=== PATIENT | female | born 1970 | race Caucasian/White ===

== ENCOUNTER 2017-02-17 18:23 | Emergency (ER) | payer MEDICAID ==
[2017-02-17 18:41] VITALS: BP 116/69
--- NOTE | 2017-02-17 19:08 | EDM.PDOC ---
<Lenny Pettyin - Last Filed: 02/17/17 21:10> ED HPI GENERAL MEDICAL PROBLEM - General Chief Complaint: Lower Extremity Injury/Pain Stated Complaint: HURT KNEE Time Seen by Provider: 02/17/17 19:30 Source of Information: Reports: Patient History Limitations: Reports: No Limitations - History of Present Illness INITIAL COMMENTS - FREE TEXT/NARRATIVE: Mechanical fall on stairs immediately prior to ED visit. Stated stepped backwards, ? if foot caught or missed step, and fell backwards down 3-4 steps. No ALOC, no c/o back/neck/etc. pain. C/o pain in R knee. Was able to ambulate at the time, and in the ED. Has complicated h/o knee surgery (three scopes ? what done, ACL repair w/ ? bone graft, patella 'resurfacing'). Denies other complaints. No EtOH. Drove self to ED. Onset: Today Duration: Getting Worse Location: Reports: Lower Extremity, Right (knee) Quality: Reports: Ache. Denies: Same as Previous Episode Severity: Moderate Improves with: Reports: None Worsens with: Reports: Movement Associated Symptoms: Reports: No Other Symptoms - Related Data Allergies Allergy/AdvReac Type Severity Reaction Status Date / Time Sulfa (Sulfonamide Allergy Hives Verified 02/17/17 19:12 Antibiotics) Home Meds: Home Meds FLUoxetine HCl [Fluoxetine HCl] 40 mg PO DAILY 03/02/13 [History] Simvastatin [Zocor] 20 mg PO DAILY 03/02/13 [History] Losartan Potassium 25 mg PO DAILY 01/11/14 [History] Aspirin [Low Dose Aspirin EC] 81 mg PO ASDIRECTED PRN 02/25/14 [History] Gabapentin [Gabapentin] 300 mg PO BID 10/27/15 [History] Verapamil HCl [Verapamil ER] 240 mg PO BEDTIME 10/27/15 [History] Clindamycin HCl 300 mg PO Q6H 01/11/16 [History] metFORMIN [Glucophage] 1,000 mg PO BID 01/11/16 [History] oxyCODONE 2 tab PO Q4H PRN 01/11/16 [History] Review of Systems - Review of Systems Review Of Systems: See Below Constitutional: Reports: No Symptoms Eyes: Reports: No Symptoms Ears: Reports: No Symptoms Nose: Reports: No Symptoms Mouth/Throat: Reports: No Symptoms Respiratory: Reports: No Symptoms Cardiovascular: Reports: No Symptoms GI/Abdominal: Reports: No Symptoms Genitourinary: Reports: No Symptoms Musculoskeletal: Reports: Other (R Knee per PMH) Skin: Reports: No Symptoms Neurological: Reports: No Symptoms Psychiatric: Reports: No Symptoms ED EXAM, GENERAL - Physical Exam Exam: See Below Free Text/Narrative:: R knee w/o effusion, full AROM and PROM, TTP over anterior medial joint line, just anterior to MCL, grossly ligamentous intact, but limited exam due to patient comfort. No calf/Achilles pain or defect. Ankle ttp over ant talofibular ligament, no inf/post fibular or tibia pain, no prox 5th metatarsal TTP, no midfoot or calcaneal pain, distal C/M/S intact. Hip AROM, non TTP Exam Limited By: No Limitations General Appearance: Alert Nose: Normal Inspection Head: Atraumatic Neck: Normal Inspection, Supple, Non-Tender, Full Range of Motion. No: Tender Lateral, Tender Midline Respiratory/Chest: No Respiratory Distress, Lungs Clear, Normal Breath Sounds, No Accessory Muscle Use, Chest Non-Tender Cardiovascular: Normal Peripheral Pulses, Regular Rate, Rhythm, No Edema, No Gallop GI/Abdominal: Soft, Non-Tender Back Exam: Normal Inspection, Full Range of Motion. No: CVA Tenderness (R), Muscle Spasm, Paraspinal Tenderness, Vertebral Tenderness Extremities: No Pedal Edema. No: Slow Capillary Refill, Joint Swelling ( swelling over ant talonav lig) Neurological: Alert, Oriented, Normal Cognition Psychiatric: Normal Affect, Normal Mood Skin Exam: Warm, Dry, Intact, Normal Color Course - Vital Signs Last Recorded V/S: Last Vital Signs Temp 37.1 C 02/17/17 18:50 Pulse 77 02/17/17 21:14 Resp 16 02/17/17 18:50 BP 116/69 02/17/17 18:50 Pulse Ox 96 02/17/17 21:14 - Orders/Labs/Meds Meds: Medications Discontinued Medications Generic Name Dose Route Start Last Admin Trade Name Freq PRN Reason Stop Dose Admin Oxycodone/Acetaminophen 2 tab 02/17/17 20:12 02/17/17 20:21 Percocet 325-5 Mg PO 02/17/17 20:13 2 tab ONETIME ONE Administration Departure - Departure Disposition: Home, Self-Care 01 Condition: Good Clinical Impression: Knee sprain, Ankle sprain - Discharge Information Instructions: Crutch Use, [id number], Ankle Sprain, [id number], Knee Sprain , [id number] Referrals: PCP,None [Primary Care Provider] - Forms: ED Department Discharge Additional Instructions: Follow up with your orthopedic surgeon if not improved in a week. No driving while on pain medications. Stop smoking. - Assessment/Plan Assessment:: Acute knee sprain, knee sprain. Cannot definitively r/o bony injury due to chronic changes. Discussed need to NOT DRIVE with acute RLE injury or while taking oxycodone. Plan: Protected weight bearing with crutches. Advance to full weight bearing and normal walking as quickly as tolerated. Do not drive until knee is better. Do not drive while taking oxycodone/Percocet. Quit smoking. 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: Neurological History: Reports: Neuropathy, Diabetic Psychiatric History: Reports: Anxiety, Depression Endocrine/Metabolic History: Reports: Diabetes, Type II Dermatologic History: Reports: Eczema - Infectious Disease History Infectious Disease History: Reports: Chicken Pox, Scarlet Fever - Past Surgical History Female Surgical History: Reports: Hysterectomy, Tubal Ligation Social & Family History - Family History Family Medical History: Noncontributory - Tobacco Use Smoking Status *Q: Current Every Day Smoker Years of Tobacco use: 32 Packs/Tins Daily: 0.5 Used Tobacco, but Quit: No Month Tobacco Last Used: january Second Hand Smoke Exposure: No - Alcohol Use Days Per Week of Alcohol Use: 0 - Recreational Drug Use Recreational Drug Use: No Review of Systems - Review of Systems Review Of Systems: ROS reveals no pertinent complaints other than HPI. Course - Orders/Labs/Meds Meds: Medications Discontinued Medications Generic Name Dose Route Start Last Admin Trade Name Freq PRN Reason Stop Dose Admin Oxycodone/Acetaminophen 2 tab 02/17/17 20:12 02/17/17 20:21 Percocet 325-5 Mg PO 02/17/17 20:13 2 tab ONETIME ONE Administration Departure - Departure Time of Disposition: 18:57
[2017-02-17] MEDS ORDERED: Acetaminophen/oxyCODONE 325-5 MG Tab PO ONE (20:12)
--- NOTE | 2017-02-18 08:58 | CR ---
Large ossific density distal fibula should indicate accessory ossicle or remote avulsion fragment. No definitive acute fracture.
--- NOTE | 2017-02-18 09:01 | CR ---
Right knee. Findings: Moderate to advanced medial compartment joint space narrowing with hypertrophic change. ACL reconstruction. Hypertrophic change lateral compartment with joint space narrowing. Patellofemoral d egenerative change. No fracture.
== END 2017-02-17 21:29 | disposition home or self-care (01) ==
LOC: JP.ED 18:23
DX: S83.91XA Sprain of unspecified site of right knee, initial encounter (principal); S93.401A Sprain of unspecified ligament of right ankle, initial encounter; Z88.2 Allergy status to sulfonamides; Z79.899 Other long term (current) drug therapy; Z79.84 Long term (current) use of oral hypoglycemic drugs; F17.210 Nicotine dependence, cigarettes, uncomplicated; W10.9XXA Fall (on) (from) unspecified stairs and steps, initial encounter
CPT/HCPCS: 73564; 73610; 99284; A9270; 99283

== ENCOUNTER 2019-08-12 09:06 | Emergency (ER) | payer SELFPAY ==
[2019-08-12] MEDS ORDERED: HYDROmorphone 1 MG/ML Syringe IM ONE (09:32)
--- NOTE | 2019-08-12 09:36 | EDM.PDOC ---
ED HPI GENERAL MEDICAL PROBLEM - General Chief Complaint: Upper Extremity Injury/Pain Stated Complaint: FELL ON THE ICE Time Seen by Provider: 08/12/19 09:25 Source of Information: Reports: Patient, RN History Limitations: Reports: No Limitations - History of Present Illness INITIAL COMMENTS - FREE TEXT/NARRATIVE: 49 yo female fell on the ice landing on her R elbow. Now has pain to the proximal humeral area and some mild RUE numbness. No neck pain. is picking her up. No tx prior to arrival. 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 (see below) (none) Right Arm Pain Score (Numeric/FACES): 10 - Related Data Allergies Allergy/AdvReac Type Severity Reaction Status Date / Time Sulfa (Sulfonamide Allergy Hives Verified 02/17/17 19:12 Antibiotics) Home Meds: Home Meds Simvastatin [Zocor] 20 mg PO DAILY 03/02/13 [History] Losartan Potassium 25 mg PO DAILY 01/11/14 [History] Aspirin [Low Dose Aspirin EC] 81 mg PO ASDIRECTED PRN 02/25/14 [History] Gabapentin 300 mg PO TID 10/27/15 [History] metFORMIN [Glucophage] 1,000 mg PO DAILY 01/11/16 [History] ARIPiprazole [Aripiprazole] 2 mg PO BEDTIME 08/12/19 [History] Mirtazapine 15 mg PO BEDTIME 08/12/19 [History] Topiramate 100 mg PO BEDTIME 08/12/19 [History] Venlafaxine HCl [Venlafaxine ER] 3 cap PO DAILY 08/12/19 [History] clonazePAM [Clonazepam] 0.5 mg PO DAILY PRN 08/12/19 [History] glipiZIDE [Glipizide ER] 5 mg PO DAILY 08/12/19 [History] traZODone 50 mg PO BEDTIME 08/12/19 [History] Past Medical History HEENT History: Reports: Impaired Vision Cardiovascular History: Reports: High Cholesterol Gastrointestinal History: Reports: Colon Polyp, Diverticulosis Other Gastrointestinal History: 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 BULB FILLER History: HYSTERECTOMY Neurological History: Reports: Neuropathy, Diabetic Other Neuro History: MIGRAINES Psychiatric History: Reports: Anxiety, Depression Endocrine/Metabolic History: Reports: Diabetes, Type II Dermatologic History: Reports: Eczema - Infectious Disease History Infectious Disease History: Reports: Chicken Pox, Scarlet Fever - Past Surgical History Female Surgical History: Reports: Hysterectomy, Tubal Ligation Other Musculoskeletal Surgeries/Procedures:: Neuropathy, R KNEE ACL REPAIR, R KNEE RESET KNEECAP, R KNEE ORTHOSCOPIC Social & Family History - Family History Family Medical History: Noncontributory - Tobacco Use Years of Tobacco use: 35 Packs/Tins Daily: 1 - Caffeine Use Caffeine Use: Reports: Coffee, Soda - Recreational Drug Use Recreational Drug Use: No Review of Systems - Review of Systems Review Of Systems: See Below Constitutional: Reports: No Symptoms Musculoskeletal: Reports: Other (Proximal R humeral pain. ). Denies: Joint Swelling Skin: Reports: No Symptoms Neurological: Reports: Numbness (mild or RUE) ED EXAM, GENERAL - Physical Exam Exam: See Below Exam Limited By: No Limitations General Appearance: Alert, WD/WN, No Apparent Distress Extremities: Normal Inspection, No Pedal Edema, Limited Range of Motion (due to pain). No: Normal Range of Motion, Non-Tender, Pedal Edema Neurological: Alert, Oriented, CN II-XII Intact, Normal Cognition, Other (mild R arm/hand numbness) Psychiatric: Normal Affect, Normal Mood Skin Exam: Warm, Dry, Intact, Normal Color, No Rash Course - Vital Signs Last Recorded V/S: Last Vital Signs Temp 36.6 C 08/12/19 09:45 Pulse 84 08/12/19 09:45 Resp 16 08/12/19 09:45 BP 123/77 08/12/19 09:45 Pulse Ox 95 08/12/19 09:45 - Orders/Labs/Meds Orders: Active Orders 24 hr Category Date Time Status Humerus Rt [CR] Stat Exams 08/12/19 09:36 Ordered Meds: Medications Discontinued Medications Generic Name Dose Route Start Last Admin Trade Name Freq PRN Reason Stop Dose Admin Hydromorphone HCl 1 mg 08/12/19 09:32 08/12/19 09:36 Dilaudid IM 08/12/19 09:33 1 mg ONETIME ONE Administration - Radiology Interpretation Free Text/Narrative:: R humeral X-ray-neg Departure - Departure Time of Disposition: 10:10 Disposition: Home, Self-Care 01 Condition: Fair Clinical Impression: Rotator cuff injury Qualifiers: Encounter type: initial encounter Laterality: right Qualified Code(s): S46.001A - Unspecified injury of muscle(s) and tendon(s) of the rotator cuff of right shoulder, initial encounter - Discharge Information *PRESCRIPTION DRUG MONITORING PROGRAM REVIEWED*: No *COPY OF PRESCRIPTION DRUG MONITORING REPORT IN PATIENT ELISABET: No Instructions: How to Use a Sling, [id number] Referrals: PCP,None [Primary Care Provider] - Forms: ED Department Discharge Additional Instructions: Use ibuprofen 400 mg every 6 hrs with food for pain relief. Wear the provided sling for support. Add either acetaminophen OR [place] for added pain relief. Seek out orthopedic care in your home area later this week for recheck(bring X- rays). Sepsis Event Note - Focused Exam Vital Signs: Vital Signs Temp Pulse Resp BP Pulse Ox 08/12/19 09:45 36.6 C 84 16 123/77 95 08/12/19 09:44 36.6 C 84 16 123/77 95 Date Exam was Performed: 08/12/19 Time Exam was Performed: 09:59 - My Orders Last 24 Hours: My Active Orders 08/12/19 09:36 Humerus Rt [CR] Stat - Assessment/Plan Last 24 Hours: My Active Orders 08/12/19 09:36 Humerus Rt [CR] Stat
[2019-08-12 09:45] VITALS: BP 123/77; PULSE 84
--- NOTE | 2019-08-13 09:12 | CR ---
Humerus Rt CLINICAL HISTORY: Pain, fall FINDINGS: There is no acute fracture within the humerus. There is degenerative change in the AC joint. IMPRESSION: No fracture or dislocation.
== END 2019-08-12 10:16 | disposition home or self-care (01) ==
LOC: JP.ED 09:06
DX: S46.001A Unspecified injury of muscle(s) and tendon(s) of the rotator cuff of right shoulder, initial encounter (principal); E11.9 Type 2 diabetes mellitus without complications; E78.00 Pure hypercholesterolemia, unspecified; Z79.84 Long term (current) use of oral hypoglycemic drugs; Z79.82 Long term (current) use of aspirin; Z79.899 Other long term (current) drug therapy; E11.40 Type 2 diabetes mellitus with diabetic neuropathy, unspecified; F41.9 Anxiety disorder, unspecified; F32.9 Major depressive disorder, single episode, unspecified; G43.909 Migraine, unspecified, not intractable, without status migrainosus; F17.210 Nicotine dependence, cigarettes, uncomplicated; Z88.2 Allergy status to sulfonamides; W00.0XXA Fall on same level due to ice and snow, initial encounter
CPT/HCPCS: 73060; 96372; 99283; 99284; J1170

== ENCOUNTER 2021-11-26 15:35 | Emergency (ER) | payer OTHER ==
[2021-11-26] MEDS ORDERED: Sodium Chloride 0.9% 10 ML Syringe FLUSH PRN (15:57)
[2021-11-26] MEDS ORDERED: Famotidine 20 MG/2 ML SDV IVPUSH ONE (15:57)
[2021-11-26] MEDS ORDERED: Aspirin 81 MG Tab.Chew PO ONE (15:57)
[2021-11-26] MEDS ORDERED: Aluminum Hydroxide/Magnesium Hydroxide/Simethicone Susp 30 ML Cup PO ONE (15:58)
[2021-11-26 16:36] LABS: ESTIMATED GFR 67 mL/min (>60)
[2021-11-26 17:19] VITALS: BP 110/65; PULSE 78
== END 2021-11-26 17:22 | disposition home or self-care (01) ==
LOC: JP.ED 15:35
DX: R07.89 Other chest pain (principal); M54.2 Cervicalgia; M54.6 Pain in thoracic spine; E78.00 Pure hypercholesterolemia, unspecified; E11.40 Type 2 diabetes mellitus with diabetic neuropathy, unspecified; Z88.2 Allergy status to sulfonamides; Z79.82 Long term (current) use of aspirin; Z79.84 Long term (current) use of oral hypoglycemic drugs; Z79.899 Other long term (current) drug therapy
CPT/HCPCS: 36415; 71045; 80053; 84484; 85025; 86140; 93005; 96374; 99285; A9270; J3490; 93010; 99283

== ENCOUNTER 2022-01-15 13:21 | Emergency (ER) | payer OTHER ==
[2022-01-15 13:29] VITALS: BP 127/69; PULSE 101
[2022-01-15] MEDS ORDERED: diphenhydrAMINE 50 MG/ML SDV IM ONE (16:11)
[2022-01-15] MEDS ORDERED: Ketorolac 30 MG/ML SDV IM ONE (16:11)
== END 2022-01-15 17:00 | disposition home or self-care (01) ==
LOC: JP.ED 13:21
DX: B34.9 Viral infection, unspecified (principal); E11.9 Type 2 diabetes mellitus without complications; Z88.2 Allergy status to sulfonamides; Z79.899 Other long term (current) drug therapy; Z79.82 Long term (current) use of aspirin; Z79.84 Long term (current) use of oral hypoglycemic drugs; Z90.49 Acquired absence of other specified parts of digestive tract; Z90.710 Acquired absence of both cervix and uterus; Z20.822 Contact with and (suspected) exposure to COVID-19
CPT/HCPCS: 87635; 96372; 99284; J1200; J1885; U0002

== ENCOUNTER 2022-11-12 13:57 | Emergency (ER) | payer OTHER, MEDICAID ==
[2022-11-12 14:54] VITALS: BP 103/73; PULSE 87
== END 2022-11-12 15:20 | disposition home or self-care (01) ==
LOC: JP.ED 13:57
DX: J01.90 Acute sinusitis, unspecified (principal); E78.00 Pure hypercholesterolemia, unspecified; E11.40 Type 2 diabetes mellitus with diabetic neuropathy, unspecified; F17.210 Nicotine dependence, cigarettes, uncomplicated; Z88.2 Allergy status to sulfonamides; Z79.899 Other long term (current) drug therapy; Z79.82 Long term (current) use of aspirin; Z79.84 Long term (current) use of oral hypoglycemic drugs
CPT/HCPCS: 99284; U0002